=== PATIENT | female | born 1955 | race Caucasian/White ===

== ENCOUNTER 2017-02-22 11:16 | Emergency (ER) | payer BC | END 2017-02-22 14:15 | disposition home or self-care (01) | LOC: ER1 11:16 | DX: S01.81XA Laceration without foreign body of other part of head, initial encounter (principal); W19.XXXA Unspecified fall, initial encounter; Y92.009 Unspecified place in unspecified non-institutional (private) residence as the place of occurrence of the external cause; Z23 Encounter for immunization | CPT/HCPCS: 70450; 90471; 90715; 99283 ==

== ENCOUNTER 2017-03-01 11:47 | Emergency (ER) | payer BC | END 2017-03-01 12:24 | disposition home or self-care (01) | LOC: ER1 11:47 | DX: Z48.02 Encounter for removal of sutures (principal); Z79.899 Other long term (current) drug therapy | CPT/HCPCS: 99281 ==